=== PATIENT | female | born 1950 | race Caucasian/White ===

== ENCOUNTER → 2016-03-08 | Outpatient (REF) | payer MEDICARE ==
[2016-03-08 14:03] LABS: TOTAL PROTEIN 6.7 GM/DL (6.4-8.2)
[2016-03-08 14:09] LABS: FOLATE > 24.0 NG/ML; VITAMIN B12 LEVEL 342 PG/ML
[2016-03-09 12:12] LABS: ALBUMIN 3.79 GM/DL (3.29-5.55); ALBUMIN % 56.6 % (55.8-66.1); GAMMA GLOBULIN % 13.2 % (11.1-18.8)
== END ==
LOC: M LABNEURO 13:15
PROVIDERS: ATTEND Psychiatry & Neurology Neurology
DX: G60.9 Hereditary and idiopathic neuropathy, unspecified (principal)

== ENCOUNTER → 2018-08-16 | Outpatient (REF) | payer MEDICARE ==
[~2018-08-16] MED LIST: AMLO25TA PO; ATOR40TA75 PO; BETH25TA37 PO; DIAZ10TA2 PO; DILT1CAP PO; FLOM0.4C39 PO; NITR0.2D5 TD; OXYC1TAB23 PO; PAXI20TA29 PO; POTA20TA6 PO; PROTPAK PO; SUCR1TA PO; URSO300C3 PO; VITA500045 PO; [UNRECOGNIZED DRUG - CODE] PO
[2018-08-16 13:44] LABS: AMORPHOUS SEDIMENT SMALL (NEGATIVE); APPEARANCE, URINE CLEAR (CLEAR); BACTERIA, URINE AUTO NEGATIVE (NEGATIVE); BILIRUBIN, URINE AUTO NEGATIVE (NEGATIVE); BLOOD, URINE BLOOD 1+ (NEGATIVE); COLOR, URINE YELLOW (YELLOW); GLUCOSE, URINE (UA) AUTO NEGATIVE (NEGATIVE); KETONE, URINE AUTO NEGATIVE (NEGATIVE); LEUKOCYTE ESTERASE, URINE AUTO NEGATIVE (NEGATIVE); MUCUS, URINE SMALL (NEGATIVE); NITRITE, URINE AUTO NEGATIVE (NEGATIVE); PROTEIN, URINE AUTO NEGATIVE (NEGATIVE); RBC, URINE AUTO 148 /HPF (0-3); SPECIFIC GRAVITY URINE AUTO 1.015 (1.002-1.035); SQUAMOUS EPITHELIAL CELL UR AU 1 /HPF (0-6); UROBILINOGEN, URINE AUTO 0.2 mg/dL (0.0-2.0); WBC, URINE AUTO 2 /HPF (0-3)
== END ==
LOC: M SMT 13:27
PROVIDERS: ATTEND Nurse Practitioner Family
DX: N20.0 Calculus of kidney (principal)
CPT/HCPCS: 81001; 87086; G0463

== ENCOUNTER 2018-08-21 12:27 | Day surgery (SDC) | payer MEDICARE ==
[~2018-08-21] VITALS: Ht 149.9 cm; Wt 71.2 kg
[2018-08-21] MEDS ORDERED: FLOM0.4C39 PO (13:11)
[2018-08-21] MEDS ORDERED: SUCR1TA PO (13:11)
[2018-08-21] MEDS ORDERED: BETH25TA37 PO (13:11)
[2018-08-21] MEDS ORDERED: DIAZ10TA2 PO (13:11)
[2018-08-21] MEDS ORDERED: NITR0.2D5 TD (13:11)
[2018-08-21] MEDS ORDERED: VITA500045 PO (13:11)
[2018-08-21] MEDS ORDERED: URSO300C3 PO (13:11)
[2018-08-21] MEDS ORDERED: ATOR40TA75 PO (13:11)
[2018-08-21] MEDS ORDERED: AMLO25TA PO (13:11)
[2018-08-21] MEDS ORDERED: OXYC1TAB23 PO (13:11)
[2018-08-21] MEDS ORDERED: [UNRECOGNIZED DRUG - CODE] PO (13:11)
[2018-08-21] MEDS ORDERED: DILT1CAP PO (13:11)
[2018-08-21] MEDS ORDERED: PAXI20TA29 PO (13:11)
[2018-08-21] MEDS ORDERED: PROTPAK PO (13:11)
[2018-08-21] MEDS ORDERED: POTA20TA6 PO (13:11)
[2018-08-21] MEDS ORDERED: ONDANSETRON 4MG/2ML VIAL (J2405) As Ordered ONE (18:33)
[2018-08-21] MEDS ORDERED: PROPOFOL 200 MG/20 ML VIAL As Ordered ONE (18:33)
[2018-08-21] MEDS ORDERED: METOCLOPRAMIDE INJ 10MG/2ML VIAL (J2765) As Ordered ONE (18:33)
[2018-08-21] MEDS ORDERED: LIDOCAINE 2% INJ 100 MG/5 ML SDV (FOR ANES.) As Ordered ONE (18:33)
[2018-08-21] MEDS ORDERED: MIDAZOLAM INJ 2 MG/2 ML VIAL (J2250) As Ordered ONE (18:50)
[2018-08-21] MEDS ORDERED: fentaNYL 100 MCG/2 ML INJECTION (J3010) As Ordered ONE (18:51)
[2018-08-21] MEDS ORDERED: LIDOCAINE 2% 5ML JELLY UROJET As Ordered ONE (19:09)
[2018-08-21] MEDS ORDERED: CONRAY-60 60% 50ML VIAL (Q9961) As Ordered ONE (19:09)
[2018-08-21] MEDS ORDERED: PERCOCET 5MG/325MG TAB As Ordered ONE (20:59)
[2018-08-21 21:15] VITALS: BP 120/56
[2018-08-21] MEDS ORDERED: PERCOCET 5MG/325MG TAB PO PRN (21:15)
--- NOTE | 2018-08-22 08:08 | REP ---
Clinical: Stent placement. Technique: Intraoperative fluoroscopic imaging using portable C-arm technique. Findings: Multiple images from retrograde pyelogram study demonstrates mild left sided hydronephrosis with a subtle filling defect in the region of the ureteropelvic junction/proximal ureter. Final image demonstrates stent placement in satisfactory position. Total fluoroscopic time 22 seconds. Impression: Status post left ureteral stent placement. Electronically Signed by Larry Terry MD 08/22/2018 07:59 A
--- NOTE | 2018-08-22 11:53 | RO ---
DATE OF PROCEDURE: 08/21/2018 PREPROCEDURE DIAGNOSIS: Left ureteral stone. POSTPROCEDURE DIAGNOSIS: Left ureteral stone. PROCEDURE: Cystoscopy, left retrograde pyelogram with intraoperative interpretation of images, left ureteral stent placement. SURGEON: Marvin Esparza MD [employer] MEAT: None. ANESTHESIA: Monitored anesthesia care (MAC). OPERATIVE INDICATIONS: This is a 68-year-old female with an obstructing distal left ureteral stone. She has been to the emergency room 2-3 times because of the obstructing stone. It was recommended that we bring her to the operating room today for stent placement to relieve her pain and to buy us time to have medical and cardiac clearance for stone surgery. DESCRIPTION OF PROCEDURE: The patient was brought to the operating room, and MAC anesthesia was administered. Prophylactic antibiotics were infused. She was then placed in the dorsal lithotomy position and prepped and draped in the usual sterile fashion. A rigid cystoscope was inserted into the urethral meatus and advanced into the bladder. A guidewire was advanced up the left collecting system. Of note, there was a little bit of difficulty getting the wire past the stone distally, indicating that the stone might be somewhat impacted. Next, I advanced a 5-Syriac open-ended ureteral catheter over the wire; and once again, I did have minor difficulty getting the open-ended ureteral catheter past the stone but was ultimately able to get it into the left renal pelvis. The wire was then removed, and I aspirated some urine from the left kidney. It did not appear purulent. At this point, I shot a retrograde pyelogram. It was notable for mild to moderate left hydronephrosis with no extravasation. I then advanced the wire back up the left collecting system and removed the open-ended ureteral catheter. I then utilized the wire to advance a 6-Syriac x 22-32 cm double J ureteral stent up to the left collecting system. The wire was removed, and there were adequate curls of the stent in the left renal pelvis and in the bladder. The bladder was then emptied of all fluid, and this marked the conclusion of the procedure. The patient was then taken out of the dorsal lithotomy position, awakened from anesthesia, and transported to the recovery room in stable condition. ESTIMATED BLOOD LOSS: 5 mL. COMPLICATIONS: None. SPECIMENS: None. PLAN: The patient will get set up for a medical and cardiac clearance in preparation for a left ureteroscopy with laser lithotripsy at a later date.
== END 2018-08-21 21:25 | disposition home or self-care (01) ==
LOC: M SDC 12:27
PROVIDERS: ATTEND Urology
DX: N20.1 Calculus of ureter (principal); I10 Essential (primary) hypertension; I20.9 Angina pectoris, unspecified; K21.9 Gastro-esophageal reflux disease without esophagitis; K27.9 Peptic ulcer, site unspecified, unspecified as acute or chronic, without hemorrhage or perforation; K85.90 Acute pancreatitis without necrosis or infection, unspecified; Z88.8 Allergy status to other drugs, medicaments and biological substances; Z79.899 Other long term (current) drug therapy; Z86.73 Personal history of transient ischemic attack (TIA), and cerebral infarction without residual deficits
CPT/HCPCS: 52332; 74420; C1769; C2617; G0463; J0690; J2250; J2405; J2765; J3010; Q9961

== ENCOUNTER → 2018-09-17 | Outpatient (REF) | payer MEDICARE ==
[2018-09-17 18:17] LABS: APPEARANCE, URINE CLEAR (CLEAR); BACTERIA, URINE AUTO 1+ (NEGATIVE); BILIRUBIN, URINE AUTO NEGATIVE (NEGATIVE); BLOOD, URINE BLOOD 3+ (NEGATIVE); COLOR, URINE YELLOW (YELLOW); GLUCOSE, URINE (UA) AUTO NEGATIVE (NEGATIVE); KETONE, URINE AUTO NEGATIVE (NEGATIVE); LEUKOCYTE ESTERASE, URINE AUTO 2+ (NEGATIVE); MUCUS, URINE SMALL (NEGATIVE); NITRITE, URINE AUTO NEGATIVE (NEGATIVE); PROTEIN, URINE AUTO NEGATIVE (NEGATIVE); RBC, URINE AUTO 85 /HPF (0-3); SPECIFIC GRAVITY URINE AUTO 1.013 (1.002-1.035); SQUAMOUS EPITHELIAL CELL UR AU 0 /HPF (0-6); UROBILINOGEN, URINE AUTO 0.2 mg/dL (0.0-2.0); WBC, URINE AUTO 11 /HPF (0-3)
== END ==
LOC: M SMT 16:50
PROVIDERS: ATTEND Nurse Practitioner Family
DX: Z01.818 Encounter for other preprocedural examination (principal); N20.0 Calculus of kidney

== ENCOUNTER 2018-09-18 08:07 | Day surgery (SDC) | payer MEDICARE ==
[~2018-09-18] VITALS: Ht 147.3 cm; Wt 71.7 kg
[~2018-09-18 08:07] MED LIST changes: +ASPI325T47 PO; -DILT1CAP PO; +LIDOCAINE 1% MDV 20ML VIAL SQ PRN; +[UNRECOGNIZED DRUG - CODE] PO; -[UNRECOGNIZED DRUG - CODE] PO
[2018-09-18] MEDS ORDERED: ONDANSETRON 4MG/2ML VIAL (J2405) As Ordered ONE (08:49)
[2018-09-18] MEDS ORDERED: dexameTHASONE 4 MG/ML 1ML VIAL (J1100) As Ordered ONE (08:49)
[2018-09-18] MEDS ORDERED: propofoL 200 MG/20 ML VIAL As Ordered ONE (08:49)
[2018-09-18] MEDS ORDERED: LIDOCAINE 2% INJ 100 MG/5 ML SDV (FOR ANES.) As Ordered ONE (08:49)
[2018-09-18] MEDS ORDERED: fentaNYL 100 MCG/2 ML INJECTION (J3010) As Ordered ONE (08:52)
[2018-09-18] MEDS ORDERED: LR 1,000 ML IV ONE (09:15)
[2018-09-18] MEDS ORDERED: ceFAZolin SOD 2 GM in IV 1 EA IV ONE (09:15)
[2018-09-18] MEDS ORDERED: CONRAY-60 60% 50ML VIAL (Q9961) As Ordered ONE (09:46)
[2018-09-18] MEDS ORDERED: ACETAMINOPHEN 1000MG 100ML IV BTL (OFIRMEV) (J0131 PER 10MG) As Ordered ONE (10:06)
[2018-09-18] MEDS ORDERED: fentaNYL 100 MCG/2 ML INJECTION (J3010) IV PRN (11:30)
[2018-09-18] MEDS ORDERED: oxyCODONE 5MG TAB PO PRN (11:30)
[2018-09-18] MEDS ORDERED: LR 1,000 ML IV SCH (11:30)
[2018-09-18] MEDS ORDERED: PERCOCET 5MG/325MG TAB PO PRN (11:30)
--- NOTE | 2018-09-18 11:32 | REP ---
Retrograde pyelogram: A series of six intraoperative fluoroscopic views are performed during left ureteral stent placement. The final films demonstrate the proximal and distal stent pigtails to be in satisfactory locations. Fluoroscopic exposure time is not indicated. Electronically Signed by Russell Garcia MD 09/18/2018 11:23 A
[2018-09-18 12:00] VITALS: BP 136/63
--- NOTE | 2018-09-18 12:28 | RO ---
DATE OF PROCEDURE: 09/18/2018 PREPROCEDURE DIAGNOSIS: Left kidney and ureteral stones. POSTPROCEDURE DIAGNOSIS: Left kidney and ureteral stones. PROCEDURE: Cystoscopy, left ureteroscopy with laser lithotripsy and basket extraction of stones, left retrograde pyelogram with intraoperative interpretation of images, left ureteral stent exchange. SURGEON: Dr. Marvin Esparza STUDENT LOAN COUNSELOR: None. ANESTHESIA: General. OPERATIVE INDICATIONS: This is a 68-year-old female who was found to have an obstructing 7 mm left ureteral stone and had a stent placed a few weeks ago. She also has a 4 mm left kidney stone. She was brought to the operating room today for the above listed procedure. DESCRIPTION OF PROCEDURE: The patient was brought to the operating room, where general anesthesia was induced. Prophylactic antibiotics were infused. She was then placed in the dorsal lithotomy position and prepped and draped in the usual sterile fashion. A rigid cystoscope was then inserted into the urethral meatus and advanced into the bladder. Once inside the bladder, the previously placed stent was grasped and withdrawn until the distal end was seen protruding through the urethral meatus. I then advanced the wire up the stent and then removed the stent intact. At this point, I went up the left ureter with a short semi rigid ureteroscope and within the distal ureter the 7 mm stone was seen. The stone was then fragmented into smaller pieces using a 272 micron laser fiber. All the fragments were then removed using a basket. At this point, the short semi rigid ureteroscope was removed and the ureteral access sheath was then advanced over the wire. I went up the access sheath with a flexible ureteroscope and the kidney was thoroughly examined. Within the kidney a few tiny stones were seen. Also, an approximately 4 mm stone was seen in the lower pole calyx. The stone was removed with a basket. At this point, a retrograde pyelogram was performed and was notable for mild left hydronephrosis with no extravasation. I then withdrew the uteroscope along with access sheath and noticed no stones seen within the ureter. I utilized the wire to advance a #6-Kiswahili x 22-32 cm JJ ureteral stent up the left collecting system. The wire was then removed, and there were adequate curls of the stent in the left renal pelvis and in the bladder. The bladder was then emptied of all fluid, and this marked the conclusion of the procedure. The patient was then taken out of the dorsal lithotomy position, awakened from anesthesia, and transferred to the recovery room in stable condition. Estimated blood loss 5 mL. COMPLICATIONS: None. SPECIMENS: Kidney stone fragments. PLAN: The patient will followup in the clinic in a week or two for stent removal. FELIPA
[2018-09-26 08:19] LABS: COMMENT Note: (.); Ca Ox Monohydrate 85 % (.)
== END 2018-09-18 12:55 | disposition home or self-care (01) ==
LOC: M SDC 08:07
PROVIDERS: ATTEND Urology
DX: N20.2 Calculus of kidney with calculus of ureter (principal); I10 Essential (primary) hypertension; I25.10 Atherosclerotic heart disease of native coronary artery without angina pectoris; K21.9 Gastro-esophageal reflux disease without esophagitis; I20.9 Angina pectoris, unspecified; G80.9 Cerebral palsy, unspecified; R06.83 Snoring; Z88.8 Allergy status to other drugs, medicaments and biological substances; Z79.899 Other long term (current) drug therapy; Z86.73 Personal history of transient ischemic attack (TIA), and cerebral infarction without residual deficits; Z98.51 Tubal ligation status; Z96.1 Presence of intraocular lens; Z98.41 Cataract extraction status, right eye; Z98.42 Cataract extraction status, left eye
CPT/HCPCS: 52356; 74420; 82360; 88300; C1769; C1894; C2617; J0131; J0690; J1100; J2405; J3010; Q9961